=== PATIENT | male | born 1960 | race Caucasian/White ===

== ENCOUNTER 2019-04-18 10:19 | Emergency (ER) | payer OTHER ==
[2019-04-18 10:36] VITALS: BP 155/107; PULSE 115; TEMP 98.7; BMI 53.1
--- NOTE | 2019-04-18 13:13 | PDOC ---
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 Per the patient , denies trauma, bug bites, injection in the elbow, inability to flex and extend elbow, and previous elbow surgery. Denies pain with ROM, only with palpation. Per the patient, he has stopped taking his medications since November 2018 due to side effect profile (includes metoprolol, metformin, and aspirin; denies anticoagulation use). Denies the following: fever, chills, SOB, chest pain, nausea, vomiting, dysuria, hematuria, diarrhea, constipation, and generalized weakness. States he has diaphoresis but states its a chronic issue. AllergieS: NKDA Surgical hx: right rotator cuff injury Meds: metformin, metoprolol, and aspirin Social: Denies tobacco, alcohol, and substance abuse. 04/18/19 13:15 Past History - Past Medical History Allergies/Adverse Reactions: Allergies Allergy/AdvReac Type Severity Reaction Status Date / Time No Known Allergies Allergy Verified 06/27/13 10:21 Home Medications: Ambulatory Orders Acetaminophen [Tylenol .Regular Strength -] 650 mg PO Q6H PRN #0 tablet Loperamide HCl [Imodium -] 2 mg PO Q6H PRN #0 capsule 07/06/13 Metoprolol Succinate [Toprol XL -] 25 mg PO DAILY #0 tab.sr.24h 07/06/13 Atorvastatin Calcium [Lipitor] 20 mg PO HS 04/18/19 Losartan Potassium [Cozaar] 100 mg PO DAILY 04/18/19 Ranitidine [Zantac -] 150 mg PO BID 04/18/19 Sulfamethoxazole/Trimethoprim [Bactrim Ds -] 1 tab PO BID #21 tablet 04/18/19 levoFLOXacin [Levaquin -] 500 mg PO DAILY #14 tablet 04/18/19 metFORMIN HCL [Glucophage -] 1,000 mg PO BIDAC 04/18/19 COPD: No Diabetes: Yes (type 2) Disorders: Yes (tbi) HTN: Yes Hypercholesterolemia: Yes - Surgical History Orthopedic Surgery: Yes (L. Shoulder Repair) - Suicide/Smoking/Psychosocial Hx Smoking Status: No Smoking History: Never smoked Have you smoked in the past 12 months: No Number of Cigarettes Smoked Daily: 0 Hx Alcohol Use: No (Quit 2011) Drug/Substance Use Hx: No Hx Substance Use Treatment: No Review of Systems - Review of Systems Able to Perform ROS?: Yes Is the patient limited Turkmen proficient: No Constitutional: Yes: Diaphoresis. No: Chills, Fever HEENTM: No: Eye Pain, Ear Pain, Nose Pain, Throat Pain, Mouth Pain Respiratory: No: Cough, Shortness of Breath Cardiac (ROS): No: Chest Pain, Lightheadedness, Palpitations ABD/GI: No: Constipated, Diarrhea, Nausea, Vomiting : No: Burning, Dysuria, Hematuria Musculoskeletal: Yes: Joint Pain. No: Back Pain Integumentary: Yes: Erythema. No: Bruising, Rash Neurological: No: Headache, Numbness, Tingling, Tremors Endocrine: No: Unexplained Weight Gain Hematologic/Lymphatic: No: Anemia *Physical Exam - Vital Signs Last Vital Signs Temp Pulse Resp BP Pulse Ox 98.7 F 115 H 18 155/107 H 99 04/18/19 10:34 04/18/19 10:34 04/18/19 10:34 04/18/19 10:34 04/18/19 10:34 - Physical Exam General Appearance: Yes: Nourished, Appropriately Dressed, Obese. No: Apparent Distress, Intoxicated HEENT: positive: EOMI, SOILA, Normal Voice, Symmetrical, Pharynx Normal, Hearing Grossly Normal. negative: Pale Conjunctivae, Scleral Icterus (R), Scleral Icterus (L), Muffled/Hoarse voice, Pharyngeal Erythema, Tonsillar Exudate, Tonsillar Erythema, Excessive drooling Neck: positive: Trachea midline, Supple. negative: Tender, Lymphadenopathy (R) , Lymphadenopathy (L), Tender lateral, Tender midline Respiratory/Chest: positive: Lungs Clear, Normal Breath Sounds. negative: Chest Tender, Respiratory Distress, Accessory Muscle Use, Crackles, Rales, Rhonchi, Stridor, Wheezing Cardiovascular: positive: Regular Rhythm, S1, S2, Tachycardia. negative: Systolic Murmur Gastrointestinal/Abdominal: positive: Normal Bowel Sounds, Flat, Soft. negative : Tender Rectal Exam: negative: heme negative stool Extremity: positive: Normal Capillary Refill, Normal Range of Motion, Tender ( left elbow. approximately 3x4 cm fluctuance mass warm to the touch with tenderness to palpation. ). 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 Initial vitals; Initial Vital Signs Temp Pulse Resp BP Pulse Ox 98.7 F 115 H 18 155/107 H 99 04/18/19 10:34 04/18/19 10:34 04/18/19 10:34 04/18/19 10:34 04/18/19 10:34 Work up: ddx: abscess vs cellulitis vs bursitis vs cyst vs septic arthritis. POCUS was utilized which showed a hypoechoic 2.5x3.5 cm structure without color flow with surrounding edema. Consistent with abscess. Elbow was warm to the touch. 04/18/19 13:15 *DC/Admit/Observation/Transfer Diagnosis at time of Disposition: Bursitis - Discharge Dispostion Disposition: HOME Decision to Admit order: No - Prescriptions Prescriptions: levoFLOXacin [Levaquin -] 500 mg PO DAILY #14 tablet Sulfamethoxazole/Trimethoprim [Bactrim Ds -] 1 tab PO BID #21 tablet - Referrals Referrals: Laci Rucker MD [Primary Care Provider] - - Patient Instructions Printed Discharge Instructions: DI for Elbow Bursitis Additional Instructions: you were seen for your left elbow swelling. please follow up with Dr. Rucker within 1 week after discharge for follow up care and management. please take your antibiotics as prescribed. please return to the emergency department if your symptoms do not improve and if you have other concerning features such as chills, confusion, inability to move arm. thank you - Post Discharge Activity
[2019-04-18] MEDS ORDERED: ACETAMINOPHEN 325 MG TABLET (FP) PO ONE (13:29)
[2019-04-18] MEDS ORDERED: VANCOMYCIN 1,000 MG in DEXTROSE 5%-WATER - 250 ML IVPB ONE (13:56)
[2019-04-18] MEDS ORDERED: PIPERACILLIN/TAZOB 3.375 GM 3.375 GM in DEXTROSE 5%-WATER - 50 ML IVPB ONE (13:56)
[2019-04-18] MEDS ORDERED: SODIUM CHLORIDE 0.9% 500 ML INFUS.BAG IV ONE (13:56)
--- NOTE | 2019-04-18 14:17 | PDOC ---
Documentation entered by Isabel Murphy SCRIBE, acting as scribe for Gurdeep Etienne MD. Gurdeep Etienne MD: This documentation has been prepared by the scribe, Isabel Murphy SCRIBE, under my direction and personally reviewed by me in its entirety. I confirm that the documentation accurately reflects all work, treatment, procedures, and medical decision making performed by me. Attending Attestation - Resident Resident Name: Mandeep Hidalgo - ED Attending Attestation I have performed the following: I have examined & evaluated the patient, The case was reviewed & discussed with the resident, I agree w/resident's findings & plan - HPI HPI: 04/18/19 14:14 59-year-old male with history of hypertension, diabetes, no noncompliance with his medications for several months presents now with progressive left elbow discomfort, redness, swelling. No fevers or chills, no motor or sensory deficit , no injury. Denies any signs or symptoms of hyperglycemia such as polydipsia or polyuria or progressive neurological complaints. - Physicial Exam PE: 04/18/19 14:15 hypertensive, tachycardic, afebrile Morbidly obese gentleman seated in chair, in no acute distress speaking full sentences Heart is regular slight tachycardia, lungs are clear Abdomen is protuberant but soft and nondistended and nontender Left elbow: There is soft tissue swelling with warmth erythema consistent with bursitis and possible superimposed cellulitis. Full range of motion without joint effusion, neurovascularly intact distally - Medical Decision Making 04/18/19 14:16 59-year-old male noncompliant hypertensive and diabetic with left olecranon bursitis/cellulitis, no evidence of septic joint. Afebrile about evidence of sepsis, but hypertensive and tachycardic, likely secondary to metabolic disarray versus medication noncompliance. Labs ekg Elbow x-ray IV antibiotics Disposition accordingly 04/18/19 15:41 wbc 13.1, chem wnl with slight hyperglycemia but no elevated AG receiving IV abx EKG wnl will d/w Dr. Rucker and dispo accordingly - will need IV abx v. oral abx regimen with close f/u 04/18/19 16:46 HR improved 100. discussed with Dr. Rucker, requests CXR. If clear, can d/c on abx with close office f/u. Elbow xray also pending. Heart Score/ECG Review #1 ECG reviewed & interpreted by me at: 15:27 General ECG Interpretation: Sinus Rhythm, Normal Rate (102), Normal Intervals ( qtc 490), No acute ischemic changes
[2019-04-18 14:25] LABS: BASO % 0.7 % (0-2.0); EOS % 0.4 % (0-4.5); HEMATOCRIT 44.4 % (35.4-49); HEMOGLOBIN 14.8 GM/dL (11.7-16.9); LYMPH % 16.2 % (8-40); MCH 30.8 pg (25.7-33.7); MCHC 33.3 g/dl (32.0-35.9); MEAN CELL VOLUME 92.6 fl (80-96); MONO % 8.8 % (3.8-10.2); NEUT % 73.9 % (42.8-82.8); PLATELET COUNT 186 K/MM3 (134-434); RDW 13.7 % (11.9-15.9); WHITE BLOOD COUNT 13.1 K/mm3 (4.0-10.0)
[2019-04-18] MEDS ORDERED: ACETAMINOPHEN 325 MG TABLET (FP) ONE (14:32)
[2019-04-18] MEDS ORDERED: VANCOMYCIN 1 GRAM (PRE-DOCKED) 1,000 MG/250 ML BAG IVPB ONE (14:32)
[2019-04-18] MEDS ORDERED: PIPERACILLIN/TAZOB 3.375 GM 3.375 GM/50 ML BAG IVPB ONE (14:33)
[2019-04-18 14:49] LABS: ALBUMIN 3.4 g/dl (3.4-5.0); BILIRUBIN,TOTAL 0.8 mg/dL (0.2-1); BLOOD UREA NITROGEN 18.9 mg/dL (7-18); CALCIUM 8.7 mg/dL (8.5-10.1); POTASSIUM 4.2 mmol/L (3.5-5.1); TOT PROT 7.3 g/dl (6.4-8.2)
--- NOTE | 2019-04-19 14:43 | EKG ---
Test Reason : Blood Pressure : / mmHG Vent. Rate : 102 BPM Atrial Rate : 102 BPM P-R Int : 170 ms QRS Dur : 108 ms QT Int : 376 ms P-R-T Axes : 013 000 051 degrees QTc Int : 490 ms SINUS TACHYCARDIA CANNOT RULE OUT INFERIOR INFARCT , AGE UNDETERMINED ABNORMAL ECG WHEN COMPARED WITH ECG OF 27-JUN-2013 11:07, MINIMAL CRITERIA FOR INFERIOR INFARCT ARE NOW PRESENT QT HAS LENGTHENED Confirmed by Alvaro Conrad MD ([id number]) on 04/19/2019 2:43:08 PM Referred By: Confirmed By:Alvaro Conrad MD
== END 2019-04-18 19:55 | disposition home or self-care (01) ==
LOC: JER 10:19
DX: L03.114 Cellulitis of left upper limb (principal); M70.22 Olecranon bursitis, left elbow; I10 Essential (primary) hypertension; E11.9 Type 2 diabetes mellitus without complications; Z79.84 Long term (current) use of oral hypoglycemic drugs; E78.00 Pure hypercholesterolemia, unspecified; Z87.820 Personal history of traumatic brain injury; Z91.14 Patient's other noncompliance with medication regimen
CPT/HCPCS: 36415; 71046-TC-FY; 73070-TC-LT-FY; 80053; 85025; 87040; 93005; 93010; 96365; 96367; 99283-25

== ENCOUNTER 2019-04-22 06:22 | Inpatient (IN) | payer OTHER | END 2019-04-28 16:28 | disposition home or self-care (01) | LOC: J5S 04-26 15:11 → JER 06:22 → J5S 04-25 17:14 → JERBED 09:31 → J5S 18:45 ==